=== PATIENT | male | born 1945 | race Caucasian/White ===

== ENCOUNTER 2018-10-13 11:14 | Day surgery (SDC) | payer MEDICARE, OTHER ==
[~2018-10-13 11:14] MED LIST: Lactated Ringers 1,000 ML IV SCH
--- NOTE | 2018-10-13 11:41 | PCM.PREANE ---
Preanesthetic Assessment - Anesthesia/Transfusion/Family Hx Anesthesia History: Prior Anesthesia Without Reaction Family History of Anesthesia Reaction: No Transfusion History: No Prior Transfusion(s) Intubation History: Unknown - Review of Systems General: No Symptoms Pulmonary: No Symptoms Cardiovascular: No Symptoms Gastrointestinal: No Symptoms, Other (colon polyps 1015) Neurological: No Symptoms Other: Reports: None - Physical Assessment Height: 1.73 m Weight: 88.904 kg ASA Class: 3 Mental Status: Alert & Oriented x3 Airway Class: Mallampati = 2 Dentition: Reports: Normal Dentition (grinded front teeth), [place](s) (multiple on sides) Thyro-Mental Finger Breadths: 3 Mouth Opening Finger Breadths: 2 ROM/Head Extension: Limited/Partial Lungs: Clear to Auscultation, Normal Respiratory Effort Cardiovascular: Regular Rate, Regular Rhythm - Allergies Allergies/Adverse Reactions: Allergies Allergy/AdvReac Type Severity Reaction Status Date / Time Sulfa (Sulfonamide Allergy Rash Verified 10/07/18 12:51 Antibiotics) - Blood Blood Available: No - Anesthesia Plan Pre-Op Medication Ordered: None - Acknowledgements Anesthesia Type Planned: MAC Pt an Appropriate Candidate for the Planned Anesthesia: Yes Alternatives and Risks of Anesthesia Discussed w Pt/Guardian: Yes Pt/Guardian Understands and Agrees with Anesthesia Plan: Yes PreAnesthesia Questionnaire HEENT History: Reports: Allergic Rhinitis Cardiovascular History: Reports: CAD, High Cholesterol, Hypertension Gastrointestinal History: Reports: Colon Polyp Other Gastrointestinal History: reflux in the past Genitourinary History: Reports: BPH Musculoskeletal History: Reports: Osteoarthritis Endocrine/Metabolic History: Reports: Diabetes, Type II Oncologic (Cancer) History: Reports: Other (See Below) Other Oncologic History: precancerous lesion removed from back - Past Surgical History Head Surgeries/Procedures: Reports: None HEENT Surgical History: Reports: Naso-Sinus Surgery Other HEENT Surgeries/Procedures: hx sinus surgery Cardiovascular Surgical History: Reports: Coronary Artery Bypass (CABG x3 07/ 18m use elliptical mashine 4-5x per week for 45 minutes) GI Surgical History: Reports: Colonoscopy, Hernia, Abdominal, Hernia, Inguinal Other GI Surgeries/Procedures: hx fundoplication for hiatal hernia - SUBSTANCE USE Smoking Status *Q: Never Smoker Recreational Drug Use History: No - HOME MEDS Home Medications: Home Meds Aspirin [[place] Aspirin EC] 81 mg PO DAILY 08/21/15 [History] Atenolol 50 mg PO BEDTIME 08/21/15 [History] Fexofenadine HCl 180 mg PO DAILY PRN 08/21/15 [History] Fish Oil/Newell-3 Fatty Acids [Fish Oil 1,000 MG] 1 tab PO DAILY 08/21/15 [ History] Fluticasone Propionate [Flonase Allergy Relief] 2 sprays NASBOTH DAILY PRN 08/21 [History] Ipratropium [Atrovent 0.06% Nasal [place]] 1 - 2 sprays NASBOTH ASDIRECTED PRN 04/28 [History] chlordiazePOXIDE HCl [Chlordiazepoxide HCl] 5 mg PO BID 08/21/15 [History] Calcium Carb/Mag Ox/Zinc Sulf [Shrtdep-Gvlwzcbzw-Ymdn Tablet] 3 tab PO ASDIRECTED 10/07/18 [History] Losartan/Hydrochlorothiazide [Losartan-HCTZ 50-12.5 MG] 1.5 tab PO DAILY [History] Melatonin 10 mg PO BEDTIME PRN 10/07/18 [History] Tamsulosin HCl [Flomax] 0.4 mg PO DAILY 10/07/18 [History] atorvaSTATin Calcium [Atorvastatin Calcium] 40 mg PO DAILY 10/07/18 [History] metFORMIN HCl [Metformin HCl] 500 mg PO DAILY 10/07/18 [History] - CURRENT (IN HOUSE) MEDS Current Meds: Current Medications Lactated Ringer's (Ringers, Lactated) 1,000 mls @ 125 mls/hr IV ASDIRECTED [facility]
[2018-10-13] MEDS ORDERED: Propofol 200 MG/20 ML SDV ONE (12:26)
--- NOTE | 2018-10-13 12:52 | PCM.OPNOTE ---
- General Post-Op/Procedure Note Date of Surgery/Procedure: 10/13/18 Operative Procedure(s): Colonoscopy with cold distal transverse colon polypectomy Pre Op Diagnosis: Personal history of colon polyps Post-Op Diagnosis: Transverse colon polyp Anesthesia Technique: MAC (ASA III) Primary Surgeon: Peterson Bolton Condition: Good Free Text/Narrative:: DICTATION [id number] CPT CODE 34066
[2018-10-13] MEDS ORDERED: Lactated Ringers 1,000 ML IV SCH (13:00)
--- NOTE | 2018-10-13 13:34 | PCM48HPAN ---
Post Anesthesia Note - EVALUATION WITHIN 48HRS OF ANESTHETIC Vital Signs in Normal Range: Yes Patient Participated in Evaluation: Yes Respiratory Function Stable: Yes Airway Patent: Yes Cardiovascular Function Stable: Yes Hydration Status Stable: Yes Pain Control Satisfactory: Yes Nausea and Vomiting Control Satisfactory: Yes Mental Status Recovered: Yes Resp Rate: 19 - COMMENTS/OBSERVATIONS Free Text/Narrative:: no anesthesia problems
[2018-10-13 13:40] VITALS: BP 125/65
--- NOTE | 2018-10-13 14:12 | OR ---
SURGEON: Peterson Bolton M.D. DATE OF PROCEDURE: 10/13/2018 OPERATIONS PERFORMED: Colonoscopy with cold distal transverse colon polypectomy. PRIMARY SURGEON: Peterson Bolton MD. ANESTHESIA: MAC. [employer] [employer] CLASSIFICATION: III. PREOPERATIVE DIAGNOSIS: Personal history of colon polyps. POSTOPERATIVE DIAGNOSIS: Small transverse colon polyp. DESCRIPTION OF PROCEDURE: The patient was taken to the endoscopy room and positioned on the endoscopy table in the left lateral decubitus position. Time-out was called for appropriate identification of the patient and procedure. Monitored anesthesia care was provided. The colonoscope was inserted into the rectum and advanced with minimal difficulty to the cecum, where the colonoscope was retroflexed to visualize the ascending colon from below. The colonoscope was then straightened and slowly withdrawn. The cecum, ascending colon, hepatic flexure, and proximal mid transverse colon showed no tumors, polyps, diverticula, or angiodysplastic changes. One small polyp was encountered in the distal transverse colon. This was removed with the cold biopsy forceps. The remainder of the descending colon and sigmoid colon showed no tumors, polyps, diverticula, angiodysplasia, or evidence of inflammatory bowel disease. The colonoscope was withdrawn to the rectum and retroflexed to visualize the anal orifice from above. No tumors or polyps were seen. There were no acute hemorrhoidal changes. The colonoscope was then straightened, the rectum aspirated, and the colonoscope was removed. The patient tolerated the procedure well and was taken to the recovery room in stable condition. VIJAY / NICOLE /[id number]
== END 2018-10-13 13:35 | disposition home or self-care (01) ==
LOC: MW.SDS 11:14
PROVIDERS: ATTEND Surgery
DX: Z12.11 Encounter for screening for malignant neoplasm of colon (principal); D12.3 Benign neoplasm of transverse colon; I10 Essential (primary) hypertension; E11.9 Type 2 diabetes mellitus without complications; E78.00 Pure hypercholesterolemia, unspecified; Z86.010 Personal history of colon polyps; Z79.82 Long term (current) use of aspirin; Z79.899 Other long term (current) drug therapy; Z88.2 Allergy status to sulfonamides; Z95.1 Presence of aortocoronary bypass graft
CPT/HCPCS: 45380; J2704; J7120